=== PATIENT | female | born 1975 | race Caucasian/White ===

== ENCOUNTER 2017-12-04 15:32 | Emergency (ER) | END 2017-12-04 18:57 | disposition home or self-care (01) ==

== ENCOUNTER 2018-11-04 19:38 | Emergency (ER) | payer MEDICAID ==
[~2018-11-04] VITALS: Ht 152.4 cm; Wt 90.9 kg
[~2018-11-04 19:38] MED LIST: BUTA1CAP38 PO; PREN1TAB49
[2018-11-04 19:43] VITALS: Ht 152.4 cm; Wt 90.9 kg
[2018-11-04] MEDS ORDERED: ONDANSETRON (ODT) 4 MG TAB ODT STA (22:18)
[2018-11-04] MEDS ORDERED: MECL12.574 PO (23:31)
[2018-11-04 23:59] VITALS: BP 130/74; PULSE 77; RESP 19
--- NOTE | 2018-11-06 02:51 | ERD ---
ER Documentation Chief Complaint Chief Complaint bilateral earache x 3 days HPI Pt is 43 year old F with no significant PMHx who presents to the ED with complaints of bilateral ear fullness and tinnitis, L greater than R, for the pas t 4 days. Pt also endorses lightheadedness and dizziness, described as a room spinning sensation, that occur with fast or sudden on movements. Episodes last a few seconds before self resolving. She reports feeling nauseous but has not had any vomiting. No fevers, chills, abd pain, diarrhea or constipation. No chest pain, shortness of breath, palpitations, dyspnea. She has been getting over a recent cold and URI. Of note, she was evaluated at a community clinic a few days ago where a UA was obtained and positive for a UTI. She was given a prescription for abx yesterday but has not started taking it yet. She endorses dysuria, frequency and urgency but denies any abd pain, flank pain, fevers, chills. ROS All systems reviewed and are negative except as per history of present illness. Medications Home Meds Active Scripts Meclizine Hcl* (Antivert*) 12.5 Mg Tab, 12.5 MG PO Q6H PRN for DIZZINESS, #20 TAB Prov:DISHIGRIKIANROBBYANDRAE Isaac PA-C 11/04/18 Nsddcyfdfd-Eoluzyvsbihba-Zmcnwhiv* (Fioricet*) 50-300-40 Mg Capsule, 1 CAP PO Q4H PRN for HEADACHE, #10 CAP Prov:ROSELYN TOWNSEND DO 12/04/17 Reported Medications Vits W-Ca,Fe,Fa(<1MG) () 1 Tab Tablet 02/16/12 Allergies Allergies: Coded Allergies: No Known Allergy (Unverified , 02/16/12) PMhx/Soc History of Surgery: Yes () Anesthesia Reaction: No Hx Neurological Disorder: No Hx Respiratory Disorders: No Hx Cardiac Disorders: No Hx Psychiatric Problems: No Hx Miscellaneous Medical Probl: Yes (np) Hx Alcohol Use: No Hx Substance Use: No Hx Tobacco Use: No Physical Exam Vitals Vital Signs Date Temp Pulse Resp B/P (MAP) Pulse Ox O2 O2 Flow FiO2 Time Delivery Rate 11/04/18 98.0 77 19 130/74 98 Room Air 23:59 (92) 11/04/18 98.4 90 18 146/82 100 19:43 (103) Physical Exam Const: No acute distress Head: Atraumatic Eyes: Normal Conjunctiva. EOMI. PERRL. No nystagmus appreciated. ENT: Normal External Ears, Nose and Mouth. Neck: Full range of motion. No meningismus. Resp: Clear to auscultation bilaterally Cardio: Regular rate and rhythm, no murmurs Abd: Soft, non tender, non distended. Normal bowel sounds Skin: No petechiae or rashes Back: No midline or flank tenderness Ext: No cyanosis, or edema Neuro: M/S: Alert and oriented Face: EOMI, face and pharynx with normal sensation and function Motor: Normal strength throughout Sensation: Normal sensation throughout Speech: Normal Cerebel: Normal coordination Normal gait Normal finger to nose DTRs: 2+ and symmetric upper/lower extremities Psych: Normal Mood and Affect Result Diagram: 11/04/181 11/04/18 2221 Results 24 hrs Laboratory Tests Test 11/04/18 22:21 11/04/18 22:28 White Blood Count 7.3 10^3/ul Red Blood Count 4.58 10^6/ul Hemoglobin 8.7 g/dl Hematocrit 31.6 % Mean Corpuscular Volume 69.0 fl Mean Corpuscular Hemoglobin 19.0 pg Mean Corpuscular Hemoglobin Concent 27.5 g/dl Red Cell Distribution Width 17.3 % Platelet Count 404 10^3/UL Mean Platelet Volume 9.3 fl Immature Granulocytes % 0.400 % Neutrophils % 47.0 % Lymphocytes % 40.3 % Monocytes % 7.9 % Eosinophils % 3.7 % Basophils % 0.7 % Nucleated Red Blood Cells % 0.0 /100WBC Immature Granulocytes # 0.030 10^3/ul Neutrophils # 3.4 10^3/ul Lymphocytes # 2.9 10^3/ul Monocytes # 0.6 10^3/ul Eosinophils # 0.3 10^3/ul Basophils # 0.1 10^3/ul Nucleated Red Blood Cells # 0.0 10^3/ul Prothrombin Time 12.3 Sec Prothrombin Time Ratio 1.0 INR International Normalized Ratio 0.90 Activated Partial Thromboplast Time 28.5 Sec Urine Color STRAW Urine Clarity SLIGHTLY CLOUDY Urine pH 7.0 Urine Specific Rye 1.025 Urine Ketones NEGATIVE mg/dL Urine Nitrite NEGATIVE mg/dL Urine Bilirubin NEGATIVE mg/dL Urine Urobilinogen NEGATIVE mg/dL Urine Leukocyte Esterase 3+ Rui/ul Urine Microscopic RBC 8 /HPF Urine Microscopic WBC 160 /HPF Urine Squamous Epithelial Cells FEW /HPF Urine Yeast (Budding) FEW /HPF Urine Hemoglobin NEGATIVE mg/dL Urine Glucose 3+ mg/dL Urine Total Protein NEGATIVE mg/dl Sodium Level 139 mmol/L Potassium Level 4.2 mmol/L Chloride Level 101 mmol/L Carbon Dioxide Level 29 mmol/L Anion Gap 9 Blood Urea Nitrogen 14 mg/dl Creatinine 0.62 mg/dl Est Glomerular Filtrat Rate mL/min > 60 mL/min Glucose Level 319 mg/dl Calcium Level 9.4 mg/dl POC Beta HCG, Qualitative NEGATIVE Current Medications Medications Dose Sig/Kavitha Start Time Status Last (Trade) Ordered Route PRN Stop Time Admin Dose Reason Admin Ondansetron 4 mg ONCE STAT 11/04/18 DC 11/04/18 HCl (Zofran ODT 22:18 22:27 Odt) 11/04/18 22:19 Procedures/MDM EMERGENT LABS AND DIAGNOSTIC STUDIES: Lab Results above were reviewed and interpreted by me as below. CBC: H/H of 8.7 & 31.6. CMP: Glucose 327 without evidence of DKA or hyperosmolar syndrome Urine: 8 RBC, 160 WBC, 3+ leuk esterase, 3+ glucose Beta bcg: negative Otherwise within normal limits, unremarkable or as documented above. Nursing Notes Reviewed. Previous Medical Records requested via the Electronic Health Record. EMERGENCY DEPARTMENT COURSE / MEDICAL DECISION MAKING: Pt is a 43 year old F w/ no significant PMHx who presents with dizziness, vertigo and tinnitis x 4 days. Pt has no focal neurological deficits on physical exam. CBC was notable for micorcytic anemia with H/H of 8.7 & 36 although pt is hemodynamically stable and does not meet transfusion criteria at this time. She reports a history of heavy menstrual cycles which is likely the cause of her microcytic anemia. CMP showed elevated Glucose of 327, no evidence of DKA or Hyperosmolar syndrome. UA consistent with a UTI which pt has abx for but has not started taking yet. She was given a copy of her results and a list of community clinics to follow up with in 2 days for management of her anemia and elevated glucose. Pt's dizziness and nausea improved status post Zofran here in the ED. History and physical most consistent with peripheral vertigo likely triggered by her recent URI type sx so will treat symptomatically with Antivert. No evidence of meningitis, intracranial bleed, seizure, stroke, or elevated intracranial pressure. Overall clinical picture does not suggest signs of a posterior stroke. At this time, patient is stable for outpatient follow up and management as discussed. She was provided a list of community clinics to follow up with in 2 days. Otherwise, return to the ED for any new or worsening symptoms. Prior to discharge, patients vital signs have been reviewed SPECIALIST FOLLOW UP RECOMMENDED: None Patient has been advised to follow up with primary care in 1-2 days. Patient's blood pressure was elevated (>120/80) but appears stable without evidence of hypertension emergency or urgency. The patient was counseled about the risks of hypertension and urged to pursue outpatient monitoring and therapy within a week with their primary care physician Departure Diagnosis: Primary Impression: Anemia Anemia type: unspecified type Qualified Codes: D64.9 - Anemia, unspecified Additional Impressions: Hyperglycemia Vertigo UTI (urinary tract infection) Urinary tract infection type: acute cystitis Hematuria presence: with hematuria Qualified Codes: N30.01 - Acute cystitis with hematuria Condition: Stable Patient Instructions: Anemia, Hyperglycemia (High Blood Sugar), Understanding Urinary Tract Infections (UTIs), Inner Ear Problems: Causes of Dizziness (Zeferino tigo) Referrals: [facility] Usted se bahena hecho un examen mdico de control que le indica que no est en elvin condicin que requiera tratamiento urgente en el Departamento de Emergencia. Un estudio ms profundo y el tratamiento de barraza condicin pueden esperar sin ningn riesgo hasta que usted sea atendida/o en el consultorio de barraza mdico o elvin clnica. Es responsabilidad suya arreglar elvin satnam para el seguimiento del marce. MANEJO DE CONDICIONES NO URGENTES EN EL FUTURO 1) Si usted tiene un mdico de atencin primaria: Usted debera llamar a barraza mdico de atencin primaria antes de venir al departamento de emergencia. Despus de las horas de consultorio, barraza doctor o barraza asociado/a est disponible por telfono. El mdico o enfermero de theodora en el servicio telefnico puede asesorarle por randy medio para atender el problema, o marce contrario se puede programar elvin satnam. 2) Si usted no tiene un mdico de atencin primaria: Llame al mdico o clnica de referencia que aparece abajo nadia las horas de consultorio para hacer elvin satnam para que le vean. CLINICAS: [facility] [phone] [facility] [phone] [facility] [phone] [facility] [phone] [place] [id number] [phone] [facility] [phone] Additional Instructions: Thank you very much for allowing us to participate in your care. Your health and safety is our top priority at [facility]. Call your primary care doctor TOMORROW for an appointment during the next 2-4 days and bring all the information and medications prescribed. If the symptoms get worse and your provider is unavailable, return to the Emergency Department immediately. PHILIPPE FU PA-C Nov 06, 2018 02:30
== END 2018-11-05 | disposition home or self-care (01) ==
LOC: FTE 19:38
DX: D64.9 Anemia, unspecified (principal); R73.9 Hyperglycemia, unspecified; R55 Syncope and collapse; N30.01 Acute cystitis with hematuria
CPT/HCPCS: 80048; 81001; 81025; 85025; 85610; 85730; Z7610; 36415; 99283